=== PATIENT | female | born 1970 | race Caucasian/White ===

== ENCOUNTER → 2017-11-30 | Day surgery (SDC) | payer OTHER ==
[~2017-11-30] MED LIST: ALER-CAP25 MG PO; COZAAR50 MG PO; GABAPENTIN800 MG PO; MACROBID 100 M100 MG PO; SINGULAIR10 MG PO; SPIRIVA RESPIMAT4 GM IH; SYMBICORT 16010.2 GM IH; ULTRACET PO; VENTOLIN HFA18 GM IH; WELLBUTRIN XL300 MG PO
== END | disposition home or self-care (01) ==
LOC: ADM 11-10 08:00 → CIR.AMB 11-16 08:00
DX: N39.3 Stress incontinence (female) (male) (principal)
CPT/HCPCS: 57288; C1771